=== PATIENT | female | born 1980 | race Caucasian/White ===

== ENCOUNTER 2018-03-21 13:27 | Emergency (ER) | payer MEDICAID ==
[2018-03-21 14:52] LABS: URINE BLOOD (Dip) POC Negative (NEGATIVE); URINE GLUCOSE (Dip) POC Negative (NEGATIVE); URINE KETONES (Dip) POC Negative (NEGATIVE); URINE LEUKOCYTE EST (Dip) POC Trace (NEGATIVE); URINE NITRITE (Dip) POC Negative (NEGATIVE); URINE TOTAL PROTEIN POC Negative (NEGATIVE)
[2018-03-21 14:52] LABS: URINE PH (Dip) POC 6.5 (5.0-8.5)
== END 2018-03-21 16:29 | disposition home or self-care (01) ==
LOC: FTE 13:27
DX: O36.8120 Decreased fetal movements, second trimester, not applicable or unspecified (principal); Z3A.18 18 weeks gestation of pregnancy
CPT/HCPCS: 76805; 81003; 99284-25